=== PATIENT | male | born 1975 | race Caucasian/White ===

== ENCOUNTER → 2020-02-14 11:19 | Outpatient (BNVA) | payer OTHER, SELFPAY | PROVIDERS: PCP Internal Medicine; Referring Provider Internal Medicine; Visit Provider Physician Assistant | DX: Z76.89 Persons encountering health services in other specified circumstances (principal) ==

== ENCOUNTER 2020-04-23 06:07 | Day surgery (SDC) | payer OTHER, SELFPAY ==
[2020-04-18 08:52] VITALS: BMI 38.9
--- NOTE | 2020-04-19 15:10 | HO.ANESPROP2 ---
Documented by User: Kallie Lopez 04/19/20 15:10 HPI - Anesthesia Eval Consult details Narrative: 44yo M for Colonoscopy [facility] Past Medical History Medical History Elevated cholesterol Fatty liver H/O fracture of leg Hyperplastic colon polyp Family History Family History Father Colon cancer Surgical History Surgical History H/O colonoscopy Hx of lumbar discectomy Hx of tonsillectomy Social History Social History Alcohol intake: never Smoking Status: Never smoker Use of substances other than those prescribed or required for medical reasons: No Advance Directives: No Advance Directives Information Provided: Yes Current occupational status: employed Current occupation: food distributor Meds Allergies Allergy/AdvReac Type Severity Reaction Status Date / Time No Known Allergies Allergy Verified 04/18/20 08:55 [No Known Allergies*] Home Medications Medication Instructions Recorded Confirmed Type tadalafil [Cialis] 20 mg PO DAILY 04/18/20 04/18/20 History Exam Exam Date and Time: April 19, 2020 1510 Height,Weight and Vital Signs: Height 5 ft 11.5 in Weight 128.367 kg Assessment and Plan Assessment Anesthesia Assessment: Chart Reviewed Documented by User: Tomas Monique 04/23/20 07:53 [facility] Past Medical History Medical History Elevated cholesterol Fatty liver H/O fracture of leg Hyperplastic colon polyp Family History Family History Father Colon cancer Surgical History Surgical History H/O colonoscopy Hx of lumbar discectomy Hx of tonsillectomy Social History Social History (Reviewed 04/23/20 @ 07:52 by Tomas Gilliam Alcohol intake: never Smoking Status: Never smoker Use of substances other than those prescribed or required for medical reasons: No Advance Directives: No Advance Directives Information Provided: Yes Current occupational status: employed Current occupation: food distributor Meds Allergies Allergy/AdvReac Type Severity Reaction Status Date / Time No Known Allergies Allergy Verified 04/18/20 08:55 [No Known Allergies*] Home Medications Medication Instructions Recorded Confirmed Type tadalafil [Cialis] 20 mg PO DAILY 04/18/20 04/18/20 History Exam Airway Mallampati Class: III TM Dist: >3cm Neck ROM: Full Loose/Missing/Broken Teeth: No Heart: rrr+s1s2 Lungs: cta b/l Assessment and Plan Assessment Anesthesia Assessment: Anesthesia Plan Discussed, PAT Visit and Chart Reviewed Final Anesthetic Review NPO: Yes ASA Class: II Final Preanesthetic Review: No Changes in Pt Med Stat, Meds/Allgs Chart Reviewed, Consent Obtained/Reviewed and Anes Risks/Benef Reviewed Patient Risk: Intermediate Procedure Risk: Low Assessment/Block/Sedation in SS: Assess/Block/Sedation-SS Anesthetic Plan Anesthetic Plan: MAC: Disposition: Standard PACU
[2020-04-23 06:55] VITALS: BP 145/92; PULSE 74; RESP 16; TEMP 36.7; O2SAT 98; BMI 38.5
[2020-04-23] MEDS: Lactated Ringers 1,000 ML 100 ML IVCONT (07:02)
--- NOTE | 2020-04-23 07:29 | W.PM.OPN ---
Operative Note Operative Note Date of Service: 04/23/20 Narrative: Pre-op diagnosis: Colon cancer screening, FH of colon cancer Post-op diagnosis: other (Colon polyps, diverticulosis, hemorrhoids) Procedure: COLONOSCOPY TILL CECUM WITH BIOPSIES Consent: Indications for the procedure and potential complications of bleeding, perforation, reaction to medications and missed diagnosis were discussed with the patient and informed consent was obtained. Instrument: Olympus PCF H 190 L variable stiffness pediatric colonoscope Monitoring: Vital signs and clinical assessment, intermittent blood pressure monitoring, continuous EKG monitoring, Pulse oximetry and Carbon Dioxide monitoring were done throughout the procedure. Colon withdrawl time was 20 minutes. Procedure: The patient was placed in the left lateral decubitis position and pre-procedure medications were administered. After a digital rectal examination of the ano-rectum, the video colonoscope was inserted into the rectum and advanced through the colon to the cecum. The colonoscope was slowly withdrawn in a retrograde panoramic fashion and the colon mucosa was carefully examined including a retroflexed view of the rectum. Findings and interventions are described below. Procedure Difficulty: Without difficulty Findings: Terminal Ileum: Not evaluated Cecum: Normal Ascending Colon: Normal Transverse Colon: A 4-5 mm diminutive appearing polyp removed with a cold biopsy. Descending Colon: Normal Sigmoid Colon: Moderate diverticulosis Rectum: A 4-5 mm sessile polyp removed with a cold biopsy. Ano-rectum: Small internal hemorrhoids Colon preparation: Good Impression and Post Procedure Diagnosis: Colonoscopy Findings: Two small polyps removed Moderate diverticulosis seen in the sigmoid colon Small hemorrhoids on retroflexed exam. Plan: Await pathology results Patient has an appointment on 05/14/20 in the GI Clinic with HARLEY Retana. Repeat Colonoscopy interval based on path results - in 3-5 years if polyps are adenomatous and 10 years if polyps are hyperplastic. Above findings were reviewed with the patient and colon polyps and diverticulosis handouts were given in the discharge area Surgeon: Johana Silva MD Anesthesia: MAC (ANGEL Dos Santos) Estimated blood loss (mL): 0 Pathology: other (A. Transverse colon polyp x1, B. rectal polyp x1) Condition: stable Disposition: PACU
--- NOTE | 2020-04-23 07:29 | MHC.SHP ---
Pre-Procedural Eval Section B Chief Complaint: Family Hx of Colon Cancer Details of Present Illness: Last colonoscopy 2016- revealed to hyperplastic polyps. However family history, his father colon cancer early 60s was recommended repeat colonoscopy in 5 years. He has a normal bowel pattern. He has a good appetite. He has no GI complaints. He takes no medications. Relevant Family History (Specify if Yes): Yes Relevant Social History: None Present Medications: see Short Stay Collaborative assessment Medical History: No relevant PMH History of Previous Operations: Relevant previous surgery/procedure and date(s) (colonoscopy) Allergies: Allergies Allergy/AdvReac Type Severity Reaction Status Date / Time No Known Allergies Allergy Verified 04/18/20 08:55 [No Known Allergies*] Review of Systems Sugical H&P ROS: Negative: Constitution, Cardiovascular, Respiratory and Gastrointestinal Exam Surgical H&P Exam: Normal: Heart, Normal: Lungs, Normal: Extremities and Normal: Abdomen Plan Diagnosis/Plan: Unchanged I have reviewed the history and physical and performed a pertinent physical examination on my patient. No changes have occurred unless specified.
[2020-04-23 08:25] VITALS: BP 119/68; PULSE 84; RESP 14; TEMP 36.3; O2SAT 97
[2020-04-23 08:40] VITALS: BP 133/83; PULSE 86; RESP 20; O2SAT 98
--- NOTE | 2020-04-23 08:56 | HO.POSTANES ---
Post Anesthesia Evaluation Post Anesthesia Evaluation Vital Signs: Vital Signs Temp Pulse Resp BP Pulse Ox 04/23/20 08:40 97.3 F 86 20 133/83 98 04/23/20 08:25 97.3 F 84 14 119/68 97 04/23/20 06:55 98.0 F 74 16 145/92 H 98 Anesthesia: Monitored Mental Status: Awake Pain Control: Satisfactory Nausea/Vomiting: None Hydration: Adequate Anesthesia-Related Issues: No Anes. Related Issues
== END 2020-04-23 08:55 | disposition home or self-care (01) ==
PROVIDERS: Visit Provider Internal Medicine Gastroenterology
PROC: 0DJD8ZZ Inspection of Lower Intestinal Tract, Via Natural or Artificial Opening Endoscopic (ICD-10-PCS; CPT 45378; principal; 2020-04-23 07:30)
DX: Z12.11 Encounter for screening for malignant neoplasm of colon (principal); Z80.0 Family history of malignant neoplasm of digestive organs; K63.5 Polyp of colon; K62.1 Rectal polyp; K57.30 Diverticulosis of large intestine without perforation or abscess without bleeding; K64.8 Other hemorrhoids; K76.0 Fatty (change of) liver, not elsewhere classified; Z79.899 Other long term (current) drug therapy
CPT/HCPCS: 45380; 88305

== ENCOUNTER → 2020-05-14 11:33 | Outpatient (BNVA) | payer OTHER, SELFPAY | PROVIDERS: Visit Provider Physician Assistant ==

== ENCOUNTER 2021-08-17 07:46 | Outpatient (REF) | payer OTHER, SELFPAY ==
[2021-08-17 09:32] LABS: Alanine Aminotransferase 50 U/L (0-40); Albumin Level 4.1 g/dL (3.5-5.0); Alkaline Phosphatase 61 U/L (39-117); Anion Gap 14 (12-20); Aspartate Amino Transferase 36 U/L (5-37); Blood Urea Nitrogen 16 mg/dL (9-16); Calcium 9.4 mg/dL (8.4-10.2); Carbon Dioxide 24 mmol/L (22-29); Chloride 107 mmol/L (96-108); Cholesterol 223 mg/dL; Estimated Glomerular Filt Rate > 60; Glucose Fasting 101 mg/dL (60-99); HDL Cholesterol 38 mg/dL; LDL Cholesterol Calculated 148 mg/dl; Potassium 4.3 mmol/L (3.3-5.1); Sodium 141 mmol/L (135-145); Total Protein 7.5 g/dL (6.5-8.0); Triglycerides 187 mg/dL
== END 2021-08-17 07:47 | disposition home or self-care (01) ==
LOC: HO.LAB 07:46
PROVIDERS: PCP Internal Medicine; Visit Provider Internal Medicine
DX: Z00.00 Encounter for general adult medical examination without abnormal findings (principal); E78.5 Hyperlipidemia, unspecified
CPT/HCPCS: 36415; 80053; 80061

== ENCOUNTER 2022-08-25 08:32 | Outpatient (REF) | payer OTHER, SELFPAY ==
[2022-08-25 11:14] LABS: Alanine Aminotransferase 70 U/L (0-40); Albumin Level 4.2 g/dL (3.5-5.0); Alkaline Phosphatase 60 U/L (39-117); Anion Gap 9 (12-20); Aspartate Amino Transferase 37 U/L (5-37); Bilirubin Total 0.8 mg/dL (0.0-1.0); Blood Urea Nitrogen 14 mg/dL (9-16); Calcium 9.3 mg/dL (8.4-10.2); Carbon Dioxide 29 mmol/L (22-29); Chloride 106 mmol/L (96-108); Cholesterol 192 mg/dL; Estimated Glomerular Filt Rate > 60; Glucose Fasting 105 mg/dL (60-99); HDL Cholesterol 36 mg/dL; LDL Cholesterol Calculated 118 mg/dl; Potassium 4.4 mmol/L (3.3-5.1); Sodium 140 mmol/L (135-145); Total Protein 7.3 g/dL (6.5-8.0); Triglycerides 192 mg/dL
[2022-08-25 11:22] LABS: PSA,Total (Free>4and<10) 0.49 ng/mL (0.00-4.00)
[2022-08-30 12:09] LABS: Testosterone, Free 36.1 pg/mL (35.0-155.0); Testosterone, Total 196 ng/dL (250-1100)
== END 2022-08-25 08:33 | disposition home or self-care (01) ==
LOC: HO.10HDL 08:32
PROVIDERS: Visit Provider Internal Medicine
DX: Z00.00 Encounter for general adult medical examination without abnormal findings (principal); N52.9 Male erectile dysfunction, unspecified; Z12.5 Encounter for screening for malignant neoplasm of prostate
CPT/HCPCS: 36415; 80053; 80061; 84153; 84402; 84403

== ENCOUNTER 2022-09-12 08:48 | Outpatient (REF) | payer OTHER, SELFPAY ==
[2022-09-12 09:47] LABS: Alanine Aminotransferase 70 U/L (0-40); Albumin Level 4.3 g/dL (3.5-5.0); Alkaline Phosphatase 61 U/L (39-117); Aspartate Amino Transferase 36 U/L (5-37); Bilirubin Direct 0.2 mg/dL (0.0-0.5); Bilirubin Total 0.8 mg/dL (0.0-1.0); Total Protein 7.6 g/dL (6.5-8.0)
== END 2022-09-12 08:49 | disposition home or self-care (01) ==
LOC: HO.LAB 08:48
PROVIDERS: PCP Internal Medicine; Visit Provider Internal Medicine
DX: R74.01 Elevation of levels of liver transaminase levels (principal)
CPT/HCPCS: 36415; 80076

== ENCOUNTER 2022-09-17 09:46 | Outpatient (REF) | payer OTHER, SELFPAY ==
--- NOTE | ~2022-09-17 | US_ITS ---
EXAMINATION: US ABDOMEN LIMITED WITH LIVER ELASTOGRAPHY CLINICAL INFORMATION: Elevated serum transaminase levels. COMPARISON: Abdominal ultrasound dated 01/06/2014. TECHNIQUE: Real-time imaging of the abdominal viscera. Noninvasive ultrasound liver fibrosis assessment is performed using Luzma ElastPQ point quantification shear wave elastography (2D-SWE) with a C5-2 MHz transducer. Multiple elastography samples are obtained. FINDINGS: PANCREAS: Limited. The visualized pancreatic head and proximal body are normal in appearance. The remainder of the pancreas is obscured from visualization by the overlying bowel gas. LIVER: The liver demonstrates normal contour and generally increased echogenicity, with pericholecystic sparing. No focal lesion or intrahepatic biliary duct dilatation. The right lobe measures 18.2 cm in length. The left lobe measures 10.4 cm in length. Portal flow is towards the liver (hepatopetal). Shear wave liver elastography median stiffness is 1.62 m/s (reference: normal median stiffness is 1.3 m/s or less). IQR/median stiffness to assess sampling precision is 0.10 (reference: good quality data set is IQR/median stiffness of 0.15 or less). GALLBLADDER: Normal. The gallbladder is physiologically distended without evidence of stones, sludge, polyps, wall thickening or pericholecystic fluid. COMMON BILE DUCT: Normal in caliber measuring 0.5 cm in diameter. RIGHT KIDNEY: There is pelviectasis, without ke hydronephrosis. No renal calculi or focal parenchymal lesions. The kidney measures 12.1 cm in maximum dimension. FREE FLUID: None. US/US abdomen hanks w elastography IMPRESSION: 1. There is generalized increase in hepatic echotexture, consistent with fatty infiltration or hepatocellular disease. Please correlate clinically. Characteristic pericholecystic sparing favors fatty infiltration. No focal hepatic mass or intrahepatic biliary dilatation is seen. 2. There is hepatomegaly. 3. Liver elastography: In the absence of other known clinical signs, measurements rule out compensated advanced chronic liver disease. If there are known clinical signs, further testing may be needed for confirmation. 4. Technically limited ultrasound examination of the pancreas. REFERENCE: Society of Radiologists in Ultrasound Liver Stiffness Thresholds (2020): LIVER STIFFNESS THRESHOLDS: *Liver Stiffness equal or less than 1.3 m/s: High probability of being normal. *Liver Stiffness less than 1.7 m/s: In the absence of other known clinical signs, rules out compensated advanced chronic liver disease. *Liver Stiffness 1.7-2.1 m/s: Suggestive of compensated advanced chronic liver disease but need further test for confirmation. *Liver Stiffness over 2.1 m/s: Rules in compensated advanced chronic liver disease. *Liver Stiffness over 2.4 m/s: Suggestive of clinically significant portal hypertension. QUALITY OF DATA SET: *IQR/Median value equal or less than 0.15 implies a quality data set. *IQR/Median value over 0.15 implies a poor quality data set. SIGNIFICANT CHANGE FROM PRIOR EXAM: Significant change if liver stiffness measurement is 10% or greater from prior exam. OTHER CONSIDERATIONS: The stage of liver fibrosis may be overestimated in the setting of acute hepatitis, liver inflammation, elevated liver function tests, hepatic vascular congestion, obstructive cholestasis, non-fasting state, and infiltrative diseases such as amyloidosis and lymphoma. In some patients with NAFLD, the liver stiffness thresholds for compensated advanced chronic liver disease may be lower. In causes other than viral hepatitis and NAFLD, liver stiffness thresholds are not well established.
== END 2022-09-17 09:47 | disposition home or self-care (01) ==
LOC: HO.US 09:46
PROVIDERS: PCP Internal Medicine; Visit Provider Internal Medicine
DX: R74.01 Elevation of levels of liver transaminase levels (principal)
CPT/HCPCS: 76705; 76981

== ENCOUNTER 2022-09-29 11:41 | Outpatient (REF) | payer OTHER, SELFPAY ==
[2022-09-29 12:15] LABS: Hematocrit 43.5 % (42.0-52.0); Hemoglobin 15.1 g/dl (14.0-18.0); Mean Corpuscular HGB Conc 34.7 g/dl (31.0-36.0); Mean Corpuscular Hemoglobin 32.3 pg (27.0-33.0); Mean Corpuscular Volume 93.1 fL (80.0-98.0); Mean Platelet Volume 11.7 fL (9.4-12.4); Platelet Count 164 X10*3/uL (160-400); Red Blood Count 4.67 X10*6/uL (4.60-5.80); Red Cell Distribution Width 12.4 % (11.0-16.0)
[2022-09-29 12:39] LABS: Anion Gap 13 (12-20); Blood Urea Nitrogen 14 mg/dL (9-16); Calcium 9.3 mg/dL (8.4-10.2); Carbon Dioxide 26 mmol/L (22-29); Chloride 106 mmol/L (96-108); Estimated Glomerular Filt Rate > 60; Glucose Random 90 mg/dL (60-115); Lipase 42 U/L (8-78); Potassium 4.2 mmol/L (3.3-5.1); Sodium 141 mmol/L (135-145)
[2022-09-29 13:05] LABS: Erythrocyte Sedimentation Rate 2 MM/HR (0-15)
[2022-09-30 10:53] LABS: CDiff Gene PCR NEGATIVE (Negative)
[2022-09-30 17:38] LABS: CRP High Sensitivity 1.2 mg/L
== END 2022-09-29 11:42 | disposition home or self-care (01) ==
LOC: HO.LAB 11:41
PROVIDERS: PCP Internal Medicine; Visit Provider Physician Assistant
DX: R10.13 Epigastric pain (principal); R14.0 Abdominal distension (gaseous)
CPT/HCPCS: 36415; 80048; 83690; 85027; 85652; 86141; 87338; 87493

== ENCOUNTER 2022-10-27 12:59 | Outpatient (AMB) | payer OTHER, SELFPAY ==
--- NOTE | 2022-10-27 13:09 | A.OFFVIS_ITS ---
Intake Vital Signs 10/27/22 13:11 Height 6 ft Weight 279 lb BMI 37.8 BP 122/78 Blood Pressure Location Lt brachial Position Sitting Pulse 91 Intake Visit Reasons: Liver levels Intake Note: Patient follow up for Diverticulosis and liver level. Patient denies any GI issues. Nonfarm Animal Caretaker Required: Yes Accompanied by: Self / Same As Patient Allergies No Known Allergies [No Known Allergies*] Allergy (Verified 10/27/22 13:09) Medication List - Last Reconciled 10/27/22 by Deepa Giron PA-C sildenafil 50 mg PO DAILY PRN 5 days HPI HPI Comments History of Present Illness Details A 47 y/o male referred for elevated liver enzymes- ALT 70-normal AST He has had abdominal ultrasound elastography showing fatty liver Reviewed labs cholesterol 192 He rarely drinks alcohol He has no GI complaints No nausea, vomiting, abdominal pain, hematemesis, hematochezia fever chills Up to date on colonoscopy COUNTS INCLUDE 234 BEDS AT THE [facility] Medical History (Updated 10/27/22 @ 13:54 by Deepa Giron PA-C) Elevated cholesterol Fatty liver H/O fracture of leg Hyperplastic colon polyp Physical exam Skin lesion Surgical History H/O colonoscopy Hx of lumbar discectomy Hx of tonsillectomy Family History Father Colon cancer Social History Household Members: Spouse and Children Household Members Other:: -2 daughters Housing: House Alcohol intake: current Alcohol intake frequency: a few times a month Alcohol type: hard liquor Patient Tobacco Use Status: Former Tobacco user Tobacco use type: Cigarette e-Cigarette/Vaping Use: Never Used Second Hand Smoke Exposure: No service: No Current occupational status: employed Current occupation: food distributor Cognitive needs: No Hearing needs: No Vision needs: No Review of Systems Const All systems reviewed & are unremarkable except as noted in HPI and below Card Denies chest pain and Denies dyspnea Resp Denies dyspnea GI Denies abdominal pain, Denies change in bowel habits and Denies heartburn Physical Exam Vital Signs: Last Vital Signs Pulse 91 10/27/22 13:11 BP 122/78 10/27/22 13:11 BMI result Body Mass Index 37.8 Const General: cooperative, healthy appearing and comfortable Orientation/consciousness: patient oriented x3 Limitations: language barrier Eyes Sclerae: sclerae normal Resp Effort & Inspection: normal respiratory effort and able to speak in complete sentences Auscultation: clear to auscultation bilaterally and no wheezes Cardio Rate: regular rate Rhythm: regular rhythm Heart sounds: S1 normal heart sound present and S2 normal heart sound present GI Palpation (GI): Soft to palpation and nontender Auscultation: normal bowel sounds Skin General skin exam: no rashes or lesions noted Neuro General: patient oriented x3 Extrem General: Yes full ROM Psych Appearance: grossly normal and well kempt Mental Status: mental status grossly normal Speech and movement: Normal speech and movement present and Clear speech present Affect: normal affect Attitude: cooperative Thought process: Normal thought process present Thought content: Normal thought content present Insight: Good insight present (Psych) Judgement: Good judgement present (Psych) Results Reviewed Results Reviewed: US/US abdomen hanks w elastography IMPRESSION: ? 1. There is generalized increase in hepatic echotexture, consistent with fatty infiltration or hepatocellular disease. Please correlate clinically. Characteristic pericholecystic sparing favors fatty infiltration. No focal hepatic mass or intrahepatic biliary dilatation is seen. ALT 70 Cholesterol 192 Assessment & Plan Assessment & Plan (1) Fatty liver: Code(s): K76.0 - Fatty (change of) liver, not elsewhere classified Plan Liver workup- Orders: Orders Alpha 1 Anti-trypsin Today R74.01 - Elevation of levels of liver transaminase levels Ceruloplasmin Today K76.0 - Fatty (change of) liver, not elsewhere classified Thyroid Stimulating Hormone Today K76.0 - Fatty (change of) liver, not elsewhere classified LAUREL Reflex Titer and Pattern Today R74.01 - Elevation of levels of liver transaminase levels Mitochondrial Antibody Today R74.01 - Elevation of levels of liver transaminase levels Hepatitis A,B,C Profile Today R79.89 - Other specified abnormal findings of blood chemistry Smooth Muscle Antibody Today R74.8 - Abnormal levels of other serum enzymes Patient Instructions: A very pleasant 47-year-old Gent referred with elevated liver enzymes likely NAFLD However we will get labs to rule out any other her causes We discussed fatty liver lifestyle dietary changes Avoid weight gain, maintain good glucose and cholesterol control Abstain from alcohol Will follow-up after blood work available for review Encouraged to call questions or concerns Appreciate the opportunity assist in care this pleasant Gent Coding Level of Care Code New Pt Level 3 (56797) Diagnoses Fatty liver K76.0 Time Spent (min) 30 Comment [id number]
[2022-10-27 13:11] VITALS: BP 122/78; PULSE 91; BMI 37.8
== END 2022-10-27 14:50 | disposition home or self-care (01) ==
PROVIDERS: PCP Internal Medicine; Visit Provider Physician Assistant
DX: K76.0 Fatty (change of) liver, not elsewhere classified (principal)
CPT/HCPCS: 99213

== ENCOUNTER → 2022-10-27 12:59 | Outpatient (BNVA) | payer OTHER, SELFPAY | PROVIDERS: PCP Internal Medicine; Visit Provider Physician Assistant ==

== ENCOUNTER 2022-11-25 15:25 | Outpatient (AMB) | payer OTHER, SELFPAY ==
--- NOTE | 2022-11-25 15:34 | MHC.OFFVIS ---
Intake Intake Visit Reasons: hypogonadism Intake Note: New Patient is Present for Hypogonadism ( Was seen in past) Current Medication: sildenafil Antibiotic Allergy:None Blood Thinner: None Pharmacy: [facility] Allergies No Known Allergies [No Known Allergies*] Allergy (Verified 11/25/22 15:37) HPI HPI Comments History of Present Illness Details Omid is a pleasant male. He is a patient of Dr. Muller. He seen for the following urologic conditions - borderline testosterone - erectile dysfunction Accompanied by his is helping with translation Trial daily tadalafil with 3 month follow-up labs Erectile dysfunction Progressive Discussed role of sleep and diet Elevated triglycerides, elevated transaminases Trial tadalafil daily Hypogonadism Found on screening Overweight with elevated transaminases Labs - 09/02 T 196 F 36 PFSH Medical History Elevated cholesterol Fatty liver H/O fracture of leg Hyperplastic colon polyp Physical exam Skin lesion Surgical History H/O colonoscopy Hx of lumbar discectomy Hx of tonsillectomy Family History Father Colon cancer Social History Household Members: Spouse and Children Household Members Other:: -2 daughters Housing: House Alcohol intake: current Alcohol intake frequency: a few times a month Alcohol type: hard liquor Patient Tobacco Use Status: Former Tobacco user Tobacco use type: Cigarette e-Cigarette/Vaping Use: Never Used Second Hand Smoke Exposure: No service: No Current occupational status: employed Current occupation: food distributor Cognitive needs: No Hearing needs: No Vision needs: No Review of Systems Const Denies chills and Denies fever(s) Card Reports no additional complaints and Denies syncope Resp Denies cough GI Denies abdominal pain and Denies heartburn Reports as per HPI and Denies change in libido Neuro Denies syncope Psych Denies change in libido Endo Denies change in libido Physical Exam Const General: cooperative, healthy appearing, comfortable and no acute distress Orientation/consciousness: patient oriented x3 HEENT Face and sinus: Yes normal facial exam Mouth: moist mucous membranes Neck Neck: Yes normal visual inspection, Yes full ROM and Yes trachea midline Chest Chest palpation & inspection: normal inspection of the chest Resp Effort & Inspection: normal respiratory effort, able to speak in complete sentences and no respiratory distress GI Inspection: Yes normal to inspection Back/Spine/Pelvis Cervical Spine: normal cervical lordosis Thoracic/Lumbar Spine: thoracic and lumbar spine normal to inspection Skin General skin exam: no rashes or lesions noted Neuro General: patient oriented x3, gait normal, tone normal and moves all extremities Extrem General: Yes normal to inspection and Yes capillary refill normal Assessment & Plan Assessment & Plan (1) Testosterone deficiency: Code(s): E34.9 - Endocrine disorder, unspecified (2) Erectile dysfunction: Code(s): N52.9 - Male erectile dysfunction, unspecified Plan Three month follow-up Orders: Orders Follicle Stimulating Hormone 3 Months E34.9 - Endocrine disorder, unspecified Lutenizing Hormone 3 Months E11.69 - Type 2 diabetes mellitus with other specified complication, E34.9 - Endocrine disorder, unspecified, N52.1 - Erectile dysfunction due to diseases classified elsewhere Sex Hormone Binding Globulin 3 Months E34.9 - Endocrine disorder, unspecified, R68.82 - Decreased libido Testosterone, Free/Total 3 Months E34.9 - Endocrine disorder, unspecified Medications: New tadalafil 5 mg PO DAILY 90 days 90 tabs 1RF sexual activity E34.9 - Endocrine disorder, unspecified Patient Instructions: Imaging studies, laboratory and physical exam results were discussed and reviewed in detail. No major barriers to patient understanding were identified. An opportunity to ask questions regarding the treatment plan was provided. All questions were answered. The patient expressed understanding and agreement with the above treatment plan. The patient is aware they should contact our office by phone for worsening of their current condition or the appearance of new urologic symptoms. Compliance is encouraged with any medications and followup testing that is ordered. It is a privilege to participate in the urologic care of your patient. If you have any questions or concerns regarding treatment for the above conditions, or other urologic issues, please do not hesitate to contact me. The office telephone contact is [phone]. This note is constructed using voice recognition software. While every effort has been made to ensure accuracy principal data architect errors may have been included. Yours sincerely, Dr Mian Mendes MD, [facility] - Urology Providers of Expert, Compassionate Care for the Genitourinary System Coding Level of Care Code New Pt Level 4 (00547) Diagnoses Testosterone deficiency E34.9 Erectile dysfunction N52.9
== END 2022-11-25 16:06 | disposition home or self-care (01) ==
PROVIDERS: Visit Provider Urology
DX: E34.9 Endocrine disorder, unspecified (principal); N52.9 Male erectile dysfunction, unspecified
CPT/HCPCS: 99204

== ENCOUNTER → 2022-11-25 15:25 | Outpatient (BNVA) | payer OTHER, SELFPAY | PROVIDERS: Visit Provider Urology ==

== ENCOUNTER 2022-12-26 06:06 | Outpatient (REF) | payer OTHER, SELFPAY ==
--- NOTE | ~2022-12-26 | CT_ITS ---
EXAMINATION: CT ABDOMEN WITH CONTRAST CLINICAL INFORMATION: Right lower quadrant pain. COMPARISON: Abdominal ultrasound 09/17/2022. TECHNIQUE: Contiguous axial thin section helical images of the abdomen were performed following the administration of oral contrast and 85 mL of Omnipaque 350 intravenous contrast. The data set was reformatted in the coronal and sagittal planes and reviewed on an independent workstation. This CT examination was performed using dose optimization techniques as appropriate, variously including the following: *Automated exposure control *Adjustment of mA and/or kV according to patient size (this includes techniques or standardized protocols for targeted exams where dose is matched to indication/reason for exam; i.e. extremities or head) *Use of iterative reconstruction technique DLP: 668 mGy-cm FINDINGS: LUNG BASES: No suspicious nodules per LIVER, GALLBLADDER, AND BILIARY TREE: The liver appears normal. No discrete mass. No cirrhotic morphology. No ductal dilatation. The gallbladder appears normal with no radiopaque calculi. There is no dilatation of the extrahepatic bile duct. PANCREAS: No discrete mass. No ductal dilatation. SPLEEN: Normal. ADRENAL GLANDS AND KIDNEYS: No adrenal mass. Symmetric nephrograms. Tiny to small to characterize hypodense lesion in the inferior right kidney classified Bosniak 2. No follow-up imaging is recommended. No nephrolithiasis or hydronephrosis. BOWEL LOOPS: Small hiatal hernia. Visualized small bowel is normal in caliber. Visualized large bowel shows mild left-sided diverticulosis. The appendix appears normal. Mesenteric haziness and mildly enlarged mesenteric lymph nodes are nonspecific but most consistent with sclerosing mesenteritis. LYMPH NODES: Mildly enlarged mesenteric lymph nodes measuring up to 10 mm short axis dimension. No retroperitoneal adenopathy. VASCULAR: No aortic aneurysm. BONES: Straightening of normal lordosis. Mild degenerative changes in the lower thoracic spine. Moderate degenerative disc disease at L5-S1. CT/CT abdomen w IV con IMPRESSION: Small hiatal hernia. Mild colonic diverticulosis without evidence of diverticulitis. Normal appendix. Mildly enlarged mesenteric lymph nodes and mesenteric haziness are nonspecific but most consistent with sclerosing mesenteritis. Very rarely this can be associated with lymphoma however no splenomegaly or retroperitoneal adenopathy so this is considered unlikely. Clinical correlation necessary. Fleischner guidelines were followed.
== END 2022-12-26 06:07 | disposition home or self-care (01) ==
LOC: HO.CT 06:06
PROVIDERS: PCP Physician Assistant; Visit Provider Physician Assistant
DX: R10.13 Epigastric pain (principal)
CPT/HCPCS: 74160

== ENCOUNTER → 2023-01-26 11:15 | Outpatient (BNV) | payer OTHER, SELFPAY | PROVIDERS: PCP Internal Medicine; Visit Provider Internal Medicine Medical Oncology | DX: I88.0 Nonspecific mesenteric lymphadenitis (principal) | CPT/HCPCS: 99203; 99213 ==

== ENCOUNTER 2023-02-16 08:39 | Outpatient (REF) | payer OTHER, SELFPAY ==
[2023-02-17 16:42] LABS: Follicle Stimulating Hormone 3.2 mIU/mL (1.6-8.0); Lutenizing Hormone 3.3 mIU/mL (1.5-9.3); Sex Hormone Binding Globulin 20 nmol/L (10-50)
[2023-02-19 16:23] LABS: Testosterone, Total 303 ng/dL (250-1100)
== END 2023-02-16 08:40 | disposition home or self-care (01) ==
LOC: HO.LAB 08:39
PROVIDERS: PCP Internal Medicine; Visit Provider Urology
DX: R68.82 Decreased libido (principal); E34.9 Endocrine disorder, unspecified; N52.1 Erectile dysfunction due to diseases classified elsewhere; E11.69 Type 2 diabetes mellitus with other specified complication
CPT/HCPCS: 36415; 83001; 83002; 84270; 84402; 84403

== ENCOUNTER 2023-02-27 14:34 | Outpatient (AMB) | payer OTHER, SELFPAY ==
--- NOTE | 2023-02-27 14:48 | MHC.OFFVIS ---
Intake Intake Visit Reasons: follow up Intake Note: Patient is Present for Follow Up Urology Medication: Sildenafil, Tadalafil Antibiotic Allergies: None Blood Thinners: none Allergies No Known Allergies [No Known Allergies*] Allergy (Verified 02/27/23 14:54) Medication List - Last Reconciled 02/27/23 by Mian Mendes MD sildenafil 50 mg (1/2 x 100 mg) PO ONCE PRN 30 days tadalafil 5 mg PO DAILY 90 days HPI HPI Comments History of Present Illness Details Omid is a pleasant male. He is a patient of Dr. Muller. He seen for the following urologic conditions - borderline testosterone - erectile dysfunction Accompanied by his is helping with translation Significant improvement in erections Continue with current medications Also testosterone recovering Erectile dysfunction Progressive Discussed role of sleep and diet Elevated triglycerides, elevated transaminases Trial tadalafil daily Hypogonadism Found on screening Overweight with elevated transaminases, NAFL Labs - 09/02 T 196 F 36, 03/05 303 F 53 PFSH Medical History Skin lesion Physical exam H/O fracture of leg Fatty liver Elevated cholesterol Hyperplastic colon polyp Surgical History Hx of tonsillectomy Hx of lumbar discectomy H/O colonoscopy Family History Father Colon cancer Social History Household Members: Spouse and Children Household Members Other:: -2 daughters Housing: House Alcohol intake: current Alcohol intake frequency: a few times a month Alcohol type: hard liquor Patient Tobacco Use Status: Former Tobacco user Tobacco use type: Cigarette e-Cigarette/Vaping Use: Never Used Second Hand Smoke Exposure: No service: No Current occupational status: employed Current occupation: food distributor Cognitive needs: No Hearing needs: No Vision needs: No Review of Systems Const Denies chills and Denies fever(s) Card Reports no additional complaints and Denies syncope Resp Denies cough GI Denies abdominal pain and Denies heartburn Reports as per HPI and Denies change in libido Neuro Denies syncope Psych Denies change in libido Endo Denies change in libido Physical Exam Const General: cooperative, healthy appearing, comfortable and no acute distress Orientation/consciousness: patient oriented x3 HEENT Face and sinus: Yes normal facial exam Mouth: moist mucous membranes Neck Neck: Yes normal visual inspection, Yes full ROM and Yes trachea midline Chest Chest palpation & inspection: normal inspection of the chest Resp Effort & Inspection: normal respiratory effort, able to speak in complete sentences and no respiratory distress GI Inspection: Yes normal to inspection Back/Spine/Pelvis Cervical Spine: normal cervical lordosis Thoracic/Lumbar Spine: thoracic and lumbar spine normal to inspection Skin General skin exam: no rashes or lesions noted Neuro General: patient oriented x3, gait normal, tone normal and moves all extremities Extrem General: Yes normal to inspection and Yes capillary refill normal Assessment & Plan Assessment & Plan (1) Testosterone deficiency: Code(s): E34.9 - Endocrine disorder, unspecified Plan Six month follow-up labs Orders: Orders Testosterone, Total 6 Months E34.9 - Endocrine disorder, unspecified Prostate Specific Antigen 6 Months E34.9 - Endocrine disorder, unspecified Medications: Changed From sildenafil administer 30 minutes to 4 hours before activity 50 mg PO DAILY 5 days PRN 5 tabs 2RF sexual activity E34.9 - Endocrine disorder, unspecified To sildenafil administer 30 minutes to 4 hours before activity 50 mg (1/2 x 100 mg) PO ONCE 30 days PRN 30 tabs 1RF sexual activity E34.9 - Endocrine disorder, unspecified Patient Instructions: Imaging studies, laboratory and physical exam results were discussed and reviewed in detail. No major barriers to patient understanding were identified. An opportunity to ask questions regarding the treatment plan was provided. All questions were answered. The patient expressed understanding and agreement with the above treatment plan. The patient is aware they should contact our office by phone for worsening of their current condition or the appearance of new urologic symptoms. Compliance is encouraged with any medications and followup testing that is ordered. It is a privilege to participate in the urologic care of your patient. If you have any questions or concerns regarding treatment for the above conditions, or other urologic issues, please do not hesitate to contact me. The office telephone contact is [phone]. This note is constructed using voice recognition software. While every effort has been made to ensure accuracy delivery sales worker errors may have been included. Yours sincerely, Dr Mian Mendes MD, [facility] - Urology Providers of Expert, Compassionate Care for the Genitourinary System Coding Level of Care Code Est Pt Level 3 (63968) Diagnoses Testosterone deficiency E34.9
== END 2023-02-27 15:21 | disposition home or self-care (01) ==
PROVIDERS: PCP Internal Medicine; Visit Provider Urology
DX: E34.9 Endocrine disorder, unspecified (principal)
CPT/HCPCS: 99213

== ENCOUNTER → 2023-02-27 14:34 | Outpatient (BNVA) | payer OTHER, SELFPAY | PROVIDERS: PCP Internal Medicine; Visit Provider Urology ==

== ENCOUNTER 2023-06-03 07:31 | Outpatient (REF) | payer OTHER, SELFPAY ==
--- NOTE | ~2023-06-03 | CT_ITS ---
EXAMINATION: CT ABDOMEN AND PELVIS WITH CONTRAST CLINICAL INFORMATION: Follow up on sclerosing mesenteritis. COMPARISON: CT abdomen 12/26/2022. TECHNIQUE: Multidetector volumetric images were obtained from the superior aspect of the liver through the pubic symphysis following administration 85 mL of Omnipaque 350 intravenous contrast. Sagittal and coronal reformatted images were obtained on the technologist's workstation. Oral contrast: No This CT examination was performed using dose optimization techniques as appropriate, variously including the following: *Automated exposure control *Adjustment of mA and/or kV according to patient size (this includes techniques or standardized protocols for targeted exams where dose is matched to indication/reason for exam; i.e. extremities or head) *Use of iterative reconstruction technique DLP: 747 mGy-cm FINDINGS: LUNG BASES: No focal consolidation or pleural effusion. LIVER, GALLBLADDER, AND BILIARY TREE: Decreased attenuation of liver parenchyma consistent with hepatic steatosis. Otherwise, liver is normal in size and morphology. No liver lesions. No biliary ductal dilatation. The gallbladder is unremarkable with no evidence of radiopaque gallstones, gallbladder wall thickening, or obvious pericholecystic inflammatory changes. PANCREAS: Unremarkable. SPLEEN: Unremarkable. ADRENAL GLANDS: Unremarkable. KIDNEYS AND URETERS: The kidneys are normal in size, shape, and attenuation. Unchanged too small to characterize cortical hypodensities in the lower pole the right kidney, statistically favoring to represent simple cysts for which no imaging follow-up is recommended. No hydronephrosis, hydroureter, or calculi seen. No perinephric stranding. BLADDER: Underdistended limiting evaluation. No significant perivesical fat stranding. GASTROINTESTINAL TRACT: Small hiatal hernia. The stomach and the small bowel are nondilated. Normal appendix. Colonic diverticulosis without significant pericolonic inflammatory changes. No evidence of bowel obstruction. ABDOMINAL WALL: No significant hernia is appreciated. LYMPH NODES: Mesentery fat stranding with associated enlarged mesenteric lymph nodes are not convincingly changed. Scattered prominent retroperitoneal lymph nodes are also grossly unchanged. A mildly prominent left lower periesophageal lymph node measuring 0.8 cm in short axis (3:6) is unchanged. VASCULAR: Normal caliber abdominal aorta. PELVIC VISCERA: Unremarkable. OSSEOUS STRUCTURES: No acute or aggressive appearing osseous findings. Again noted moderate intervertebral disc height loss with vacuum disc phenomena, facet arthropathy and prominent anterior osteophytes at L5-S1. A few nonaggressive appearing sclerotic foci, for instance in the proximal right femur favored to represent bone islands. CT/CT abdomen pelvis w IV con IMPRESSION: 1. Mesenteric fat stranding with associated enlarged mesenteric lymph nodes are not significantly changed. Findings are fairly nonspecific could be related with mesenteric adenitis/panniculitis. 2. Hepatic steatosis. 3. Small hiatal hernia. A prominent left lower paraesophageal lymph node is unchanged. If not recently obtained, evaluation with upper endoscopy is recommended. 4. Diverticulosis but no evidence of acute diverticulitis. 5. Scattered prominent retroperitoneal lymph nodes are grossly unchanged.
[2023-06-03] MEDS: iohexoL 350 MG/ML 100 ML INFUS..BTL 85 ML IV (10:17)
[2023-06-03] MEDS: Barium Sulfate Oral (Mocha) 450 ML ORAL.SUSP 900 ML PO (10:17)
== END 2023-06-03 07:32 | disposition home or self-care (01) ==
LOC: HO.CT 07:31
PROVIDERS: PCP Internal Medicine; Visit Provider Internal Medicine Medical Oncology
DX: R59.0 Localized enlarged lymph nodes (principal)
CPT/HCPCS: 74177; Q9967

== ENCOUNTER 2023-08-31 07:04 | Outpatient (AMB) | payer OTHER, SELFPAY ==
[2023-08-31 07:35] VITALS: BP 136/82; BMI 38.5
--- NOTE | 2023-08-31 07:35 | A.OFFPC_ITS ---
Vital Signs 08/31/23 07:35 Height 6 ft Weight 284 lb BMI 38.5 BP 136/82 Blood Pressure Location Lt brachial Position Sitting Intake Visit Reasons: physical exam Intake Note: Patient here for a physical exam Cotton Feeder Required: No Accompanied by: Self / Same As Patient Allergies No Known Allergies [No Known Allergies*] Allergy (Verified 08/31/23 07:49) Medication List - Last Reconciled 08/31/23 by Koki Waller MD No Known Home Meds Tobacco use date assessed: 08/31/23 Dental Screening Dental Screen Date: 08/31/23 Did you have a dental visit in the last 12 months?: Yes Did you have a dental problem in the last 6 months where you did not have access to dental care?: No Was dental information given to patient?: Patient has dentist HPI HPI Comments History of Present Illness Details This is a 48-year-old male that comes for his physical exam. He is obese with a BMI of 38.5 and try Wegovy causing abdominal pain. Last colonoscopy was 2020 and he has family history of colon cancer in first-degree relative. No chest pain or shortness of breath. [facility] Medical History (Updated 08/31/23 @ 08:05 by Koki Waller MD) Skin lesion Physical exam H/O fracture of leg Fatty liver Elevated cholesterol Hyperplastic colon polyp Surgical History Leg fracture, right Hx of tonsillectomy Hx of lumbar discectomy H/O colonoscopy Family History Father Colon cancer Social History (Updated 08/31/23 @ 07:58 by Koki Waller MD) Household Members: Spouse and Children Household Members Other:: -2 daughters Housing: House Alcohol intake: current Alcohol intake frequency: holidays/special occasions only Alcohol type: hard liquor Patient Tobacco Use Status: Former Tobacco user Tobacco use type: Cigarette e-Cigarette/Vaping Use: Never Used Second Hand Smoke Exposure: No service: No Current occupational status: employed Current occupation: food distributor Current occupational exposures/hazards: No Cognitive needs: No Hearing needs: No Vision needs: No Questionnaire PHQ-9 Over the last 2 weeks, how often have you been bothered by any of the following problems? 1. Little interest or pleasure in doing things: not at all 2. Feeling down, depressed, or hopeless: not at all 3. Trouble falling or staying asleep, or sleeping too much: not at all 4. Feeling tired or having little energy: not at all 5. Poor appetite or overeating: not at all 6. Feeling bad about yourself - or that you are a failure or have let yourself or your family down: not at all 7. Trouble concentrating on things, such as reading the newspaper or watching television: not at all 8. Moving or speaking so slowly that other people could have noticed. Or the opposite - being so fidgety or restless that you have been moving around a lot more than usual: not at all 9. Thoughts that you would be better off or of hurting yourself in some way: not at all Total score: 0 Depression Screening Interpretation: Negative Depression Screening Done: Yes 07900 - PHQ-9 Billing: Yes Source: Developed by Drs. Keith Dailey, Latha Sapp, Blayne Marshall and colleagues, with an educational tiffany from [employer]. Thrive Questionnaire Date Thrive assessed: 08/31/23 I am a: Patient What is your living situation today?: I have a steady place to live Within the past 12 months, did the food you bought not last and you didn't have the money to get more?: Never true Within the past 12 months, did you worry whether your food would run out before you got money to buy more?: Never true Do you have trouble paying for medicines?: No Do you have trouble getting transportation to medical appointments?: No Do you have trouble paying your heating and electricity bill?: No Do you have trouble taking care of your child, family member or friend?: No Do you have trouble with day-to-day activities such as bathing, preparing meals, shopping, managing finances, etc.?: No Are you currently unemployed and looking for a job?: No Are you interested in more education?: No Please select the resources that you would like help with: None Currently or been in a relationship where the following occur: no concerns reported THRIVE Score: 0 AUDIT C Alcohol Use Questionnaire (AUDIT-C) 1. How often do you have a drink containing alcohol?: Never Total Score: 0 GHAZAL-7 AMB Questionnaire GHAZAL-7 Date GHAZAL - 7 assessed: 08/31/23 Feeling nervous, anxious, or on edge: 0 = Not at all Not being able to stop or control worryin = Not at all Worrying too much about different things: 0 = Not at all Trouble relaxin = Not at all Being so restless that it is hard to sit still: 0 = Not at all Becoming easily annoyed or irritable: 0 = Not at all Feeling afraid as if something awful might happen: 0 = Not at all Total GHAZAL-7 score (0-4 normal; 5-9 mild; 10-14 moderate; 15-21 severe): 0 Source: Developed by Drs. Keith Dailey, Latha Sapp, Blayne Marshall and colleagues, with an educational tiffany from [employer]. GHAZAL-7 Assessment Billing GHAZAL-7 Assessment Tool: GHAZAL-7 Assessment 32695 Review of Systems Const All systems reviewed & are unremarkable except as noted in HPI and below Eyes Reports no additional complaints, Denies change in vision and Denies other visual disturbances Card Denies chest pain at rest, Denies chest pain with activity, Denies edema, Denies irregular heart rhythm, Denies claudication, Denies dyspnea, Denies dyspnea on exertion, Denies orthopnea, Denies paroxysmal nocturnal dyspnea and Denies slow heart rate Resp Denies cough, Denies dyspnea and Denies dyspnea on exertion GI Denies abdominal pain, Denies change in bowel habits, Denies excessive flatus, Denies nausea and Denies vomiting Physical exam (Primary Care) Vital Signs: Last Vital Signs BP 136/82 08/31/23 07:35 BMI result Body Mass Index 38.5 Tobacco/Smoking Status: Tobacco use Status Tobacco use date assessed 08/31/23 08/31/23 07:40 Patient Tobacco Use Status Former Tobacco user 08/31/23 07:58 Tobacco use type Cigarette 08/31/23 07:58 e-Cigarette/Vaping Use Never Used 08/31/23 07:58 PHQ-9: PHQ-9 Score PHQ-9: Total score 0 08/31/23 07:51 Depression Screening Interpretation: Negative Thrive Assessment: Date of Thrive Assessment Date Thrive assessed 08/31/23 08/31/23 07:40 Currently or been in a relationship where the following occur: no concerns reported Const Orientation/consciousness: patient oriented x3 HENMT Head: Yes normal to inspection, Yes normocephalic and Yes atraumatic Ears: external ears normal Eyes General: appearance normal, both eyes and all related structures Eyelids: Yes eyelids normal Conjunctivae: conjunctivae normal Neck Neck: Yes normal visual inspection and Yes supple Resp Effort & Inspection: normal respiratory effort Auscultation: clear to auscultation bilaterally Cardio Jugular venous distension: no JVD Rate: regular rate Rhythm: regular rhythm Heart sounds: S1 normal heart sound present and S2 normal heart sound present GI Inspection: Yes normal to inspection Palpation (GI): Soft to palpation and nontender Auscultation: normal bowel sounds Skin General skin exam: no rashes or lesions noted Neuro General: patient oriented x3 and no focal motor deficits Extrem General: Yes full ROM Psych Appearance: grossly normal Assessment and Plan Assessment & Plan (1) Physical exam: Code(s): Z00.00 - Encounter for general adult medical examination without abnormal findings Plan: Repeat in a year. Orders: Orders Comprehensive [place]. Panel Fast Today Z00.00 - Encounter for general adult medical examination without abnormal findings Lipid Panel Today Z00.00 - Encounter for general adult medical examination without abnormal findings Referrals Medical Weight Management Referral E66.9 - Obesity, unspecified, Z68.38 - Body mass index [BMI] 38.0-38.9, adult Coding Level of Care Code Est Pt Prev Care 40-64y(14776) Diagnoses Physical exam Z00.00 Additional Codes GHAZAL-7 Assessment Billing - GHAZAL-7 Assessment Tool: GHAZAL-7 Assessment 38631 ([id number]) Time Spent (min) 31
== END 2023-08-31 08:04 | disposition home or self-care (01) ==
PROVIDERS: Visit Provider Internal Medicine
DX: Z00.00 Encounter for general adult medical examination without abnormal findings (principal)
CPT/HCPCS: 99396

== ENCOUNTER 2023-08-31 08:11 | Outpatient (REF) | payer OTHER, SELFPAY ==
[2023-08-31 09:46] LABS: Alanine Aminotransferase 54 U/L (0-40); Albumin Level 4.2 g/dL (3.5-5.0); Alkaline Phosphatase 65 U/L (39-117); Anion Gap 11 (12-20); Aspartate Amino Transferase 47 U/L (5-37); Bilirubin Total 0.5 mg/dL (0.0-1.0); Blood Urea Nitrogen 16 mg/dL (9-16); Calcium 9.5 mg/dL (8.4-10.2); Carbon Dioxide 28 mmol/L (22-29); Chloride 108 mmol/L (96-108); Cholesterol 193 mg/dL (<200); Estimated Glomerular Filt Rate > 60; Glucose Fasting 108 mg/dL (60-99); HDL Cholesterol 36 mg/dL (>40); LDL Cholesterol Calculated 108 mg/dL (<100); Potassium 4.1 mmol/L (3.3-5.1); Sodium 143 mmol/L (135-145); Total Protein 7.7 g/dL (6.5-8.0); Triglycerides 247 mg/dL (<150)
[2023-08-31 10:13] LABS: Prostate Specific Antigen 9.11 ng/mL (<0.05-4.0)
[2023-09-04 13:47] LABS: Testosterone, Total 205 ng/dL (250-1100)
== END 2023-08-31 08:12 | disposition home or self-care (01) ==
LOC: HO.LAB 08:11
PROVIDERS: Absent Provider Internal Medicine; PCP Internal Medicine; Visit Provider Urology
DX: Z00.00 Encounter for general adult medical examination without abnormal findings (principal); E34.9 Endocrine disorder, unspecified; Z12.5 Encounter for screening for malignant neoplasm of prostate
CPT/HCPCS: 36415; 80053; 80061; 84153; 84403

== ENCOUNTER 2023-09-22 14:36 | Outpatient (AMB) | payer OTHER, SELFPAY ==
--- NOTE | 2023-09-22 14:50 | MHC.OFFVIS ---
Intake Visit Reasons: follow up/Labs(set) Intake Note: Patient is Present for Follow Up Urology Medication: Sildenafil, Tadalafil Antibiotic Allergies:None Blood Thinners: None Allergies No Known Allergies [No Known Allergies*] Allergy (Verified 08/31/23 07:49) Medication List - Last Reconciled 09/22/23 by Mian Mendes MD sildenafil 100 mg PO ONCE PRN tadalafil 5 mg PO DAILY 90 days HPI Comments Details: Omid is a pleasant male. He is a patient of Dr. Muller. He seen for the following urologic conditions - borderline testosterone - erectile dysfunction Here for six-month follow-up First PSA elevated 9.1 prior PSA 09/02 0.5 Erectile dysfunction Progressive Discussed role of sleep and diet Elevated triglycerides, elevated transaminases Current therapy tadalafil daily with sildenafil on demand Hypogonadism Found on screening Overweight with elevated transaminases, NAFL Labs - 09/02 T 196 F 36 PSA 0.5, 03/05 303 F 53 LH 3.3 SH 20, 09/03 T 200 PSA 9.1 PFSH Medical History (Updated 09/28/23 @ 16:36 by Johana Silva MD) Skin lesion Physical exam H/O fracture of leg Fatty liver Elevated cholesterol Hyperplastic colon polyp Surgical History (Updated 11/04/23 @ 15:42 by Mary Anne Curry) History of esophagogastroduodenoscopy (EGD) Leg fracture, right Hx of tonsillectomy Hx of lumbar discectomy H/O colonoscopy Family History Father Colon cancer Social History Household Members: Spouse and Children Household Members Other:: -2 daughters Housing: House Alcohol intake: current Alcohol intake frequency: holidays/special occasions only Alcohol type: hard liquor Patient Tobacco Use Status: Never used Tobacco Tobacco use type: Cigarette e-Cigarette/Vaping Use: Never Used Second Hand Smoke Exposure: No service: No Current occupational status: employed Current occupation: food distributor Current occupational exposures/hazards: No Cognitive needs: No Hearing needs: No Vision needs: No Review of Systems Const Denies chills and Denies fever(s) Card Reports no additional complaints and Denies syncope Resp Denies cough GI Denies abdominal pain and Denies heartburn Reports as per HPI and Denies change in libido Neuro Denies syncope Psych Denies change in libido Endo Denies change in libido Physical Exam Const General: cooperative, healthy appearing, comfortable and no acute distress Orientation/consciousness: patient oriented x3 HEENT Face and sinus: Yes normal facial exam Mouth: moist mucous membranes Neck Neck: Yes normal visual inspection, Yes full ROM and Yes trachea midline Chest Chest palpation & inspection: normal inspection of the chest Resp Effort & Inspection: normal respiratory effort, able to speak in complete sentences and no respiratory distress GI Inspection: Yes normal to inspection Back/Spine/Pelvis Cervical Spine: normal cervical lordosis Thoracic/Lumbar Spine: thoracic and lumbar spine normal to inspection Skin General skin exam: no rashes or lesions noted Neuro General: patient oriented x3, gait normal, tone normal and moves all extremities Extrem General: Yes normal to inspection and Yes capillary refill normal Assessment & Plan Assessment & Plan (1) Erectile dysfunction: Code(s): N52.9 - Male erectile dysfunction, unspecified Category: Medical (2) Testosterone deficiency: Code(s): E34.9 - Endocrine disorder, unspecified Category: Medical Plan Erectile dysfunction medications Three-month follow-up PSA Orders: Orders PSA,Total (Free>4and<10) 3 Months E34.9 - Endocrine disorder, unspecified Medications: New tadalafil [id number] [facility] [id number] Member [id number] 5 mg PO DAILY 90 tabs 1RF 90 days N52.9 - Male erectile dysfunction, unspecified sildenafil administer 30 minutes to 4 hours before activity 100 mg PO ONCE PRN 30 tabs 1RF erectile dysfunction E34.9 - Endocrine disorder, unspecified Patient Instructions: Imaging studies, laboratory and physical exam results were discussed and reviewed in detail. No major barriers to patient understanding were identified. An opportunity to ask questions regarding the treatment plan was provided. All questions were answered. The patient expressed understanding and agreement with the above treatment plan. The patient is aware they should contact our office by phone for worsening of their current condition or the appearance of new urologic symptoms. Compliance is encouraged with any medications and followup testing that is ordered. It is a privilege to participate in the urologic care of your patient. If you have any questions or concerns regarding treatment for the above conditions, or other urologic issues, please do not hesitate to contact me. The office telephone contact is [phone]. This note is constructed using voice recognition software. While every effort has been made to ensure accuracy manager dairy errors may have been included. Yours sincerely, Dr Mian Mendes MD, [facility] - Urology Providers of Expert, Compassionate Care for the Genitourinary System Coding Level of Care Code Est Pt Level 4 (15155) Diagnoses Erectile dysfunction N52.9 Testosterone deficiency E34.9
== END 2023-09-22 15:31 | disposition home or self-care (01) ==
PROVIDERS: PCP Internal Medicine; Visit Provider Urology
DX: N52.9 Male erectile dysfunction, unspecified (principal); E34.9 Endocrine disorder, unspecified
CPT/HCPCS: 99214

== ENCOUNTER → 2023-09-22 14:36 | Outpatient (BNVA) | payer OTHER, SELFPAY | PROVIDERS: PCP Internal Medicine; Visit Provider Urology ==

== ENCOUNTER 2023-09-28 12:50 | Day surgery (SDC) | payer OTHER, SELFPAY ==
[2023-09-24 14:18] VITALS: BMI 38.9
[2023-09-28 14:17] VITALS: BMI 38.5
[2023-09-28 14:23] VITALS: BP 153/89; PULSE 84; RESP 16; TEMP 37.2; O2SAT 95
--- NOTE | 2023-09-28 14:40 | MHC.SHP ---
Pre-Procedural Eval Section A - 24 Hr Update-Section A only Date of Service: 09/28/23 The patient is an INPATIENT: No The patient has been examined within 24 hours of the surgical procedure. The History & Physical has been completed within 30 days and I have reviewed it.: No Section B - Complete if H&P > 30 days Chief Complaint: prominent left lower paraesophageal lymph node Relevant Family History (Specify if Yes): Yes Relevant Social History: Tobacco Use (Former smoker) Present Medications: see Short Stay Collaborative assessment Medical History: Significant History (Elevated cholesterol Fatty liver H/O fracture of leg Hyperplastic colon polyp Physical exam Skin lesion) History of Previous Operations: Relevant previous surgery/procedure and date(s) (H/O colonoscopy Hx of lumbar discectomy Hx of tonsillectomy) Allergies: Allergies Allergy/AdvReac Type Severity Reaction Status Date / Time No Known Allergies Allergy Verified 08/31/23 07:49 [No Known Allergies*] Review of Systems Sugical H&P ROS: Negative: Constitution, Cardiovascular, Respiratory and Gastrointestinal Exam Surgical H&P Exam: Normal: Heart, Normal: Lungs, Normal: Extremities and Normal: Abdomen Plan Diagnosis/Plan: Change (Proceed with EGD as requested by Oncology) I have reviewed the history and physical and performed a pertinent physical examination on my patient. No changes have occurred unless specified. Time Spent With Patient Time: Total time managing care of this patient today ____ minutes.
[2023-09-28] MEDS: Lactated Ringers 1,000 ML 50 ML IVCONT (14:44)
--- NOTE | 2023-09-28 15:44 | W.PM.OPN ---
Operative Note Operative Note Date of Service: 09/28/23 Narrative: FLEXIBLE TRANSORAL UPPER GASTROINTESTINAL ENDOSCOPY WITH BIOPSIES Pre-op diagnosis: Abnormal CT scan - showing a prominent left lower paraesophageal lymph node on CT Post-operative Diagnosis: : hiatal hernia, esophagitis, gastritis, duodenal bulb nodule Post-op diagnosis: Hiatal hernia, erosive esophagitis, Gastritis, duodenal bulb nodules Endoscopist:? Johana Silva MD Anesthesia:?MAC UPPER ENDOSCOPY Consent: Indications for the procedure and potential complications of bleeding, perforation, reaction to medications and missed diagnosis were discussed with the patient and informed consent was obtained. Instrument: Olympus GIF H 190 mid size upper endoscope Monitoring: Vital signs and clinical assessment, continuous EKG monitoring, Pulse oximetry, Carbon Dioxide monitoring and blood pressure monitoring were done throughout the procedure. Procedure: The patient was placed in the left lateral decubitis position and pre-procedure medications were administered and a bite block was placed. The endoscope was inserted into the mouth and advanced under direct vision to the third part of duodenum. A careful inspection was made as the upper endoscope was withdrawn including a retroflexed examination of the proximal stomach; Findings and interventions are described below. Findings: Larynx: Normal Esophagus: GE junction at 35 cms, hiatal hernia 35 to 38 cms. Erosive esophagitis (LA Grade C) with multiple linear erosions from 25 to 35 cms Stomach: Moderate diffuse gastric erythema - biopsies were obtained from the antrum. Grade 3 flap valve on retroflexed examination of the cardia. Duodenum: Nodular appearing mucosa in the apex of the bulb - multiple biopsies were obtained. Normal descending duodenum Intervention: Biopsies as noted above Impression and Post Procedure Diagnosis: Endoscopy Findings: ESOPHAGUS: Hiatal hernia 35 to 38 cms. Erosive esophagitis (LA Grade C) with multiple linear erosions from 25 to 35 cms STOMACH: Moderate diffuse gastric erythema - biopsies were obtained from the antrum. Grade 3 flap valve on retroflexed examination of the cardia. 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 Above findings were reviewed with the patient and relevant handouts were given and the discharge area. Pt was advised to start Omeprazole 20 mg twice daily and schedule a follow-up EGD in 4-6 months to confirm erosive esoophagitis has healed and there is no underlying Russell's metaplasia (Message sent to GI surgical schedulers). BIOSPIES SHOWED: A. 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 B. Stomach, antrum, biopsy: Gastric antral mucosa with mild chronic inactive gastritis; negative for Helicobacter pylori, intestinal metaplasia and dysplasia
[2023-09-28 15:47] VITALS: BP 102/66; PULSE 99; RESP 16; TEMP 36.5; O2SAT 93
[2023-09-28 16:02] VITALS: BP 133/88; PULSE 87; RESP 14; O2SAT 95
[2023-09-28 16:17] VITALS: BP 122/86; PULSE 92; RESP 15; O2SAT 95
[2023-09-28 16:32] VITALS: BP 137/85; PULSE 83; RESP 14; TEMP 36.6; O2SAT 96
== END 2023-09-28 17:00 | disposition home or self-care (01) ==
PROVIDERS: PCP Internal Medicine; Visit Provider Internal Medicine Gastroenterology
PROC: 0DJ08ZZ Inspection of Upper Intestinal Tract, Via Natural or Artificial Opening Endoscopic (ICD-10-PCS; CPT 43235; principal; 2023-09-28 14:20)
DX: K44.9 Diaphragmatic hernia without obstruction or gangrene (principal); K20.80 Other esophagitis without bleeding; K29.50 Unspecified chronic gastritis without bleeding; K31.89 Other diseases of stomach and duodenum; K76.0 Fatty (change of) liver, not elsewhere classified; E78.00 Pure hypercholesterolemia, unspecified; Z79.899 Other long term (current) drug therapy; Z87.891 Personal history of nicotine dependence
CPT/HCPCS: 43239; 88305; 88313; 88342; J2704

== ENCOUNTER → 2023-09-28 12:50 | Outpatient (BNV) | payer OTHER, SELFPAY | PROVIDERS: PCP Internal Medicine; Visit Provider Internal Medicine Gastroenterology | DX: K20.90 Esophagitis, unspecified without bleeding (principal); K29.70 Gastritis, unspecified, without bleeding; K31.7 Polyp of stomach and duodenum | CPT/HCPCS: 43239 ==

== ENCOUNTER 2023-12-21 08:15 | Outpatient (REF) | payer OTHER, SELFPAY ==
[2023-12-21 10:29] LABS: PSA,Total (Free>4and<10) 0.55 ng/mL (0.00-4.00)
== END 2023-12-21 08:16 | disposition home or self-care (01) ==
LOC: HO.LAB 08:15
PROVIDERS: PCP Internal Medicine; Visit Provider Urology
DX: E34.9 Endocrine disorder, unspecified (principal); Z12.5 Encounter for screening for malignant neoplasm of prostate
CPT/HCPCS: 36415; 84153

== ENCOUNTER 2024-09-01 07:27 | Outpatient (AMB) | payer OTHER, SELFPAY ==
--- OUTSIDE RECORDS SUMMARY | 2024-09-01 07:29 | XMS_ITS ---
Author Name [facility] Organization Unknown Care Team Organization Name Specialty Phone Email Start Date End [facility] 01/08/2021 01/08/2021
--- OUTSIDE RECORDS SUMMARY | 2024-09-01 07:29 | XMS_ITS | Clinical Summary ---
[facility] Address [address] [place] [address] Care Team Providers Care Junior Designer Name Role Phone Unavailable Primary Care Provider Unavailabl e Social History Tobacco Use Types Packs/Day Years Used Date Smoking Tobacco: Never Assessed Sex and Gender Information Value Date Recorded Sex Assigned at Not on file Legal Sex Male 8:28 PM EST Gender Identity Not on file Sexual Orientation Not on file Plan of Treatment Health Maintenance Due Date Last Done Comments DTaP,Tdap,and Td Vaccines (1 - Tdap) 1992 Hepatitis B Vaccines (1 of 3 - 19+ 3-dose series) 1992 Cholesterol Screening (Lipid Panel) 05/08/2023 Colorectal Cancer Screening: Colonoscopy 05/08/2023 Depression Screening 05/08/2023 HIV Screening 05/08/2023 Hepatitis C Screening 05/08/2023 Social Influencers of Health Screening 05/08/2023 Pneumococcal Vaccine: 50+ Ye ars (1 of 1 - PCV) 06/19/2023 Zoster Vaccines (1 of 2) 06/19/2023 COVID-19 Vaccine ( - 2023-2 5 season) 2023 Influenza Vaccine (Season Ended) 2024 HIB Vaccines Aged Out No longer eligi ble based on patient's age to complete this topic HPV Vaccines Aged Out No longer eligi ble based on patient's age to complete this topic Hepatitis A Vaccines Aged Out No long er eligible based on patient's age to complete this topic IPV Vaccines Aged Out No longer eligi ble based on patient's age to complete this topic MMR Vaccines Aged Out No longer eligi ble based on patient's age to complete this topic Meningococcal ACWY Vaccine Aged Out N o longer eligible based on patient's age to complete this topic Meningococcal B Vaccine Aged Out No l onger eligible based on patient's age to complete this topic Pneumococcal Vaccine: Pediat rics (0 to 5 Years) and At-Risk Patients (6 to 64 Years) Aged Out No longer eligible b ased on patient's age to complete this topic RSV Immunization Patients Un yadiel 20 months Aged Out No longer eligible b ased on patient's age to complete this topic Varicella Vaccines Aged Out No longer eligible based on patient's age to complete this topic
--- OUTSIDE RECORDS SUMMARY | 2024-09-01 07:29 | XMS_ITS | Clinical Summary ---
Author Organization [facility] Address [address] [place] [address] Care Team Providers Care Manufacturing Operations Manager Name Role Phone Unknown Primary Care Provider [phone] Allergies No known active allergies Social History Tobacco Use Types Packs/Day Years Used Date Smoking Tobacco: Never Assessed Sex and Gender Information Value Date Recorded Sex Assigned at Male 05/24/2024 2:46 PM EST Legal Sex Male 6:36 AM EDT Gender Identity Male 05/24/2024 2:46 PM EST Sexual Orientation Not on file Last Filed Vital Signs Vital Sign Reading Time Taken Comments Blood Pressure 156/78 01/08/2021 6:40 AM EDT Pulse 94 01/08/2021 6:40 AM EDT Temperature 36.7 ??C (98.1 ??F) 01/08/2021 6:40 AM ED T Respiratory Rate 16 01/08/2021 6:40 AM EDT Oxygen Saturation 98% 01/08/2021 6:40 AM EDT Inhaled Oxygen Concentration - - Weight - - Height - - Body Mass Index - - Plan of Treatment Health Maintenance Due Date Last Done Comments Hepatitis C Virus Screening 1973 HIV Screening 1986 DTaP/Tdap/Td Vaccines (1 - Tdap) 1992 Hepatitis B Vaccines (1 of 3 - 19+ 3-dose series) 11/1992 Colonoscopy 2018 Pneumococcal Vaccines 50+ (1 of 1 - PCV) 06/19/2023 Zoster (Shingles) Vaccine (1 of 2) 06/19/2023 COVID-19 Vaccine (1 - 2023-25 season) 2023 Influenza Vaccine 11/11/2024 Insurance [facility] HMO Care Teams Manufacturing Operations Manager Relationship Specialty Start Date End Date Unknown Unknow Provider Address PCP - General 01/08/21
--- NOTE | 2024-09-01 07:30 | A.OFFPC_ITS ---
Vital Signs 09/01/24 07:31 Height 6 ft Weight 280 lb BMI 38.0 BP 126/80 Blood Pressure Location Lt brachial Position Sitting Intake Visit Reasons: annual exam Intake Note: Patient here for an annual physical exam Draw End Hand Required: No Accompanied by: Self / Same As Patient Allergies No Known Allergies [No Known Allergies*] Allergy (Verified 09/01/24 07:39) Medication List - Last Reconciled 09/01/24 by Koki Waller MD No Known Home Meds Tobacco use date assessed: 09/01/24 Dental Screening Dental Screen Date: 09/01/24 Did you have a dental visit in the last 12 months?: Yes Did you have a dental problem in the last 6 months where you did not have access to dental care?: No Was dental information given to patient?: Patient has dentist HPI HPI Comments History of Present Illness Details The patient is a 49-year-old male presenting for an annual physical examination. He reports a weight loss of approximately 4 pounds. There is a significant family history of colon cancer in his father, prompting a colonoscopy schedule every five years. The patient's last colonoscopy was in 2020, with the next due in 2025. An endoscopy is anticipated in 2023. Relevant surgical history includes a right leg fracture repair and a lumbar discectomy. He is currently not on any medications and has no known drug allergies. The patient denies experiencing symptoms of depression or anxiety. Laboratory evaluation previously indicated elevated triglycerides at 247 mg/dL, with plans to reevaluate these and assess cardiovascular disease risk. He mentions chronic constipation, resulting in a bowel movement every two to three days, which he finds bothersome. - Colonoscopy performed in 2020; next du e in 2025 - Plan to repeat triglyceride testing wi thin three months - Discussion of cardiovascular risk redu ction and lifestyle modifications PFSH Medical History Skin lesion H/O fracture of leg Fatty liver Elevated cholesterol Hyperplastic colon polyp Surgical History History of esophagogastroduodenoscopy (EGD) Leg fracture, right Hx of tonsillectomy Hx of lumbar discectomy H/O colonoscopy Family History Father Colon cancer Social History Household Members: Spouse and Children Household Members Other:: -2 daughters Housing: House Alcohol intake: current Alcohol intake frequency: holidays/special occasions only Alcohol type: hard liquor Patient Tobacco Use Status: Never used Tobacco e-Cigarette/Vaping Use: Never Used Second Hand Smoke Exposure: No service: No Current occupational status: employed Current occupation: food distributor Current occupational exposures/hazards: No Cognitive needs: No Hearing needs: No Vision needs: No Questionnaire PHQ-9 Over the last 2 weeks, how often have you been bothered by any of the following problems? 1. Little interest or pleasure in doing things: not at all 2. Feeling down, depressed, or hopeless: not at all 3. Trouble falling or staying asleep, or sleeping too much: not at all 4. Feeling tired or having little energy: not at all 5. Poor appetite or overeating: not at all 6. Feeling bad about yourself - or that you are a failure or have let yourself or your family down: not at all 7. Trouble concentrating on things, such as reading the newspaper or watching television: not at all 8. Moving or speaking so slowly that other people could have noticed. Or the opposite - being so fidgety or restless that you have been moving around a lot more than usual: not at all 9. Thoughts that you would be better off or of hurting yourself in some way: not at all Total score: 0 Depression Screening Interpretation: Negative Depression Screening Done: Yes 41633 - PHQ-9 Billing: Yes Source: Developed by Drs. Keith Dailey, Latha Sapp, Blayne Marshall and colleagues, with an educational tiffany from [employer]. Thrive Questionnaire Date Thrive assessed: 09/01/24 I am a: Patient What is your living situation today?: I have a steady place to live Within the past 12 months, did the food you bought not last and you didn't have the money to get more?: Never true Within the past 12 months, did you worry whether your food would run out before you got money to buy more?: Never true Do you have trouble paying for medicines?: No Do you have trouble getting transportation to medical appointments?: No Do you have trouble paying your heating and electricity bill?: No Do you have trouble taking care of your child, family member or friend?: No Do you have trouble with day-to-day activities such as bathing, preparing meals, shopping, managing finances, etc.?: No Are you currently unemployed and looking for a job?: No Are you interested in more education?: No Please select the resources that you would like help with: None Currently or been in a relationship where the following occur: No concerns reported THRIVE Score: 0 AUDIT C Alcohol Use Questionnaire (AUDIT-C) 1. How often do you have a drink containing alcohol?: Monthly or less 2. How many drinks containing alcohol do you have on a typical day when you are drinking?: 1 or 2 3. How often do you have six or more drinks on one occasion?: Never Total Score: 1 Score Reviewed/Action Taken: No GHAZAL-7 AMB Questionnaire GHAZAL-7 Date GHAZAL - 7 assessed: 09/01/24 Feeling nervous, anxious, or on edge: 0 = Not at all Not being able to stop or control worryin = Not at all Worrying too much about different things: 0 = Not at all Trouble relaxin = Not at all Being so restless that it is hard to sit still: 0 = Not at all Becoming easily annoyed or irritable: 0 = Not at all Feeling afraid as if something awful might happen: 0 = Not at all Total GHAZAL-7 score (0-4 normal; 5-9 mild; 10-14 moderate; 15-21 severe): 0 Source: Developed by Drs. Keith Dailey, Latha Sapp, Blayne Marshall and colleagues, with an educational tiffany from [employer]. GHAZAL-7 Assessment Billing GHAZAL-7 Assessment Tool: GHAZAL-7 Assessment 39781 Review of Systems Const All systems reviewed & are unremarkable except as noted in HPI and below Card Denies chest pain at rest, Denies chest pain with activity, Denies edema, Denies irregular heart rhythm, Denies claudication, Denies dyspnea, Denies dyspnea on exertion, Denies orthopnea, Denies paroxysmal nocturnal dyspnea and Denies slow heart rate Resp Denies cough, Denies dyspnea and Denies dyspnea on exertion GI Denies abdominal pain, Denies change in bowel habits, Denies excessive flatus, Denies nausea and Denies vomiting Musc Denies atrophy, Denies deformity and Denies limited range of motion Skin/Breast Reports lesions Physical exam (Primary Care) Vital Signs: Last Vital Signs BP 126/80 09/01/24 07:31 BMI result Body Mass Index 38.0 BMI Assessment/Plan discussion: High BMI High, discussed plan: lifestyle, weight reduction, dietary, physical activity and alcohol moderation Tobacco/Smoking Status: Tobacco use Status Tobacco use date assessed 09/01/24 09/01/24 07:35 Patient Tobacco Use Status Never used Tobacco 09/01/24 07:35 Tobacco use type 09/01/24 07:35 e-Cigarette/Vaping Use Never Used 09/01/24 07:35 PHQ-9: PHQ-9 Score PHQ-9: Total score 0 09/01/24 07:42 Depression Screening Interpretation: Negative Thrive Assessment: Date of Thrive Assessment Date Thrive assessed 09/01/24 09/01/24 07:35 Currently or been in a relationship where the following occur: No concerns reported [facility] Head: Yes normal to inspection, Yes normocephalic and Yes atraumatic Ears: external ears normal Eyes General: appearance normal, both eyes and all related structures Eyelids: Yes eyelids normal Conjunctivae: conjunctivae normal Neck Neck: Yes normal visual inspection and Yes supple Resp Effort & Inspection: normal respiratory effort Auscultation: clear to auscultation bilaterally Cardio Jugular venous distension: no JVD Rate: regular rate Rhythm: regular rhythm Heart sounds: S1 normal heart sound present and S2 normal heart sound present GI Inspection: Yes normal to inspection Palpation (GI): Soft to palpation and nontender Auscultation: normal bowel sounds Skin General skin exam: no rashes or lesions noted Lesions: lesion noted (left arm circular lesion) Neuro General: no focal motor deficits Extrem General: Yes full ROM Psych Appearance: grossly normal Immunizations Boostrix Tdap 2.5 Lf unit-8 mcg-5 Lf/0.5 mL intramuscular syringe Performing Provider: Koki Waller MD [facility]forming [facility] [place] [place] [facility] Administered by: JACKIE Em on 09/01/24 07:59 Dose Route Admin Location Dispensed Lot Number Expiration Date [facility] [employer] [place] [place] 0.5 mL IM Right Deltoid 0.5 mL [id number] 12/07/26 [id number] [email or web address] VIS Given Date VIS Provided VIS Publication Date 09/01/24 Single Vaccine 24 Eligibility Eligibility Date Funding Source Not [facility] Eligible 09/01/24 Private Coding Level of Care Code Est Pt Level 3 (26355) Est Pt Prev Care 40-64y(82382) Diagnoses Physical exam Z00.00 Skin lesion L98.9 Additional Codes PHQ-9 - 21419 - PHQ-9 Billing: Yes ([id number]) GHAZAL-7 Assessment Billing - GHAZAL-7 Assessment Tool: GHAZAL-7 Assessment 99171 ([id number]) Time Spent (min) 33 Assessment & Plan Assessment & Plan (1) Physical exam: Code(s): Z00.00 - Encounter for general adult medical examination without abnormal findi ngs Category: Medical (2) Skin lesion: Code(s): L98.9 - Disorder of the skin and subcutaneous tissue, unspecified Category: Medical Plan His elevated triglycerides are to be reassessed in three months for further risk stratification, focusing on lifestyle and dietary modification as discussed. Regular follow-ups and screenings. Symptomatic management based on his reports of constipation includes dietary advisory focused on fiber intake.: Patient was informed and verbally consented to the use of an ambient scribe for clinic note documentation during this visit. We discussed his family history, specifically colon cancer, and maintained a colonoscopic schedule every five years. The elevated triglycerides require re- evaluation within the next three months to gauge cardiovascular risk accurately. We also addressed his chronic constipation with nutritional guidance. We reviewed the risks and benefits of regular screening and lifestyle choices that support overall health maintenance. No depressive or anxious symptoms were reported. The importance of regular health check-ups and continued observance to proposed testing schedules was emphasized. Orders: Orders Lipid Panel Today E78.5 - Hyperlipidemia, unspecified Comprehensive [place]. Panel Fast Today Z00.00 - Encounter for general adult medical examination without abnormal findings Referrals Dermatology Referral L98.9 - Disorder of the skin and subcutaneous tissue, unspecified Patient Instructions: - Follow up on scheduled colonoscopy in 2025 - Repeat triglyceride test within three months - Focus on dietary changes to manage elevated triglycerides and constipation - Return if experiencing any concerning symptoms or changes in health
[2024-09-01 07:31] VITALS: BP 126/80; BMI 38.0
== END 2024-09-01 07:58 | disposition home or self-care (01) ==
LOC: HO.HMCH 07:28
PROVIDERS: PCP Internal Medicine; Visit Provider Internal Medicine
DX: Z00.00 Encounter for general adult medical examination without abnormal findings (principal); L98.9 Disorder of the skin and subcutaneous tissue, unspecified; Z23 Encounter for immunization

== ENCOUNTER → 2024-09-01 07:27 | Outpatient (BNVA) | payer OTHER, SELFPAY | PROVIDERS: PCP Internal Medicine; Visit Provider Internal Medicine | DX: Z00.00 Encounter for general adult medical examination without abnormal findings (principal); K59.09 Other constipation; L98.9 Disorder of the skin and subcutaneous tissue, unspecified; E78.5 Hyperlipidemia, unspecified; Z23 Encounter for immunization; Z80.0 Family history of malignant neoplasm of digestive organs | CPT/HCPCS: 90471; 90715; 96127 ==